=== PATIENT | female | born 1980 | race Caucasian/White ===

== ENCOUNTER 2021-01-11 16:54 | Emergency (ER) | payer OTHER, SELFPAY ==
[2021-01-11] VITALS (10 sets, daily range): BP systolic 109–135; BP diastolic 45–75; PULSE 73–83; RESP 18–20; TEMP 37–38.7; O2SAT 97–100
--- NOTE | ~2021-01-11 | CT_ITS ---
EXAMINATION: CT brain wo con DATE: 01/11/2021 17:32 INDICATION: Unresponsive TECHNIQUE: Computed tomography (CT) of the head was performed without intravenous contrast. The mA wa s adjusted according to patient size. Iterative reconstruction technique was employed. Exam dose: 75 6.67 mGy-cm total exam DLP. COMPARISON: 02/09/2019 CT brain FINDINGS: No intracranial mass lesion or hemorrhage or cerebrovascular accident. No midline shift or mass effect. Normal ventricular size. No subdural or epidural hematoma. No orbital mass lesion. The mastoid air cells are normally aerated. The paranasal sinuses are normally developed and aerated. No fracture or bone destruction of the cranial vault. IMPRESSION: No significant abnormality Reviewed, dictated and finalized at [facility] Reviewed, dictated and finalized at [facility]. IMPRESSION: No significant abnormality
--- NOTE | ~2021-01-11 | XR_ITS ---
XR chest 1V portable DATE: 01/11/2021 17:33 INDICATION: Unresponsive TECHNIQUE: Portable AP chest on 01/11/2021 at 1741 hours COMPARISON: 09/06/2018 PA and lateral chest FINDINGS: No pulmonary infiltrate or consolidation, pleural effusion or pulmonary vascular congestion or pneumothorax. Heart size appears normal considering magnification associated with AP projection. Included skeletal structures are unremarkable. IMPRESSION: No active cardiopulmonary disease Reviewed, dictated and finalized at [facility].
[2021-01-11] MEDS: SODIUM CHLORIDE 0.9% IV 1,000 ML 999 ML IV CONT (16:55)
--- NOTE | 2021-01-11 17:01 | ECG_ITS ---
Measurements Intervals [place] Rate: 83 P: 0 DC: 143 QRS: -15 QRSD: 85 T: 49 QT: 378 QTc: 445 Interpretive Statements SINUS RHYTHM EARLY PRECORDIAL R/S TRANSITION BORDERLINE ECG Electronically Signed On 01-12-2021 8:22:13 CDT by Talib Alvarenga D.O.
[2021-01-11 17:26] LABS: Basophils Absolute Auto 0.01 K/mm3 (0.00-0.10); Basophils Percent Auto 0.2 % (0.0-1.0); Eosinophils Absolute Auto 0.11 K/mm3 (0.02-0.50); Immature Granulocyte Absolute 0.03 K/mm3 (0.00-0.00); Immature Granulocyte Percent A 0.5 % (0.0-0.0); Lymphocytes Absolute Auto 0.82 K/mm3 (1.10-4.50); Lymphocytes Percent Auto 14.7 % (18.0-42.0); Mean Corpuscular HGB Conc 26.2 g/dL (32.0-36.0); Mean Corpuscular Volume 72.5 fL (78.0-102.0); Monocytes Absolute Auto 0.38 K/mm3 (0.10-0.90); Monocytes Percent Auto 6.8 % (2.0-11.0); Neutrophils Absolute Auto 4.2 K/mm3 (1.7-7.2); Neutrophils Percent Auto 75.8 % (50.0-70.0); Platelet Count Result 140 K/mm3 (150-420); Red Cell Distribution Width 20.2 % (11.6-14.4); White Blood Count 5.6 K/mm3 (4.8-10.8)
--- NOTE | 2021-01-11 17:27 | ED.AMS ---
HPI - Altered Mental Status General Chief Complaint: Altered Mental Status Stated Complaint: ambulance Time Seen by Provider: 01/11/21 17:01 Source: patient and EMS Mode of arrival: EMS Limitations: altered mental status History of Present Illness HPI narrative: 40-year-old woman brought to the emergency department by EMS after being found in a vehicle in front of a local grocery store near her house. The windows were up, the vehicle was not running. Outdoor temperature approximately 85-90 degrees and christa. Her receipt states that she checked out of the store at 3:41. 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 Patient states that she has been feeling winded with exertion and has had swelling in her ankles. She states she has had a persistent headache. She states that she recently traveled to [place] and was having black stools that she attributed to stress. She states that she has had no recent blood in her stools, vomiting bloody or otherwise, or vaginal bleeding. Patient states the thinks she went through the change. Related Data Home Medications Medication Instructions Recorded Confirmed metformin 1,000 mg BYMOUTH DAILY 01/11/21 01/11/21 oxcarbazepine 600 mg PO DAILY 01/11/21 01/11/21 risperidone 2 mg PO DAILY 01/11/21 01/11/21 Allergies Allergy/AdvReac Type Severity Reaction Status Date / Time No Known Allergies Allergy Unverified 02/08/19 18:45 Review of Systems Review of Systems: All systems reviewed & are unremarkable except as noted in HPI and below Constitutional: Constitutional: Denies chills and Denies fever(s) Eyes: Eyes: Denies change in vision and Denies photophobia ENT: Denies dysphagia, Denies nasal congestion and Denies sore throat Cardiovascular: Cardiovascular: Reports chest pain and Denies radiating jaw, neck or arm pain Respiratory: Respiratory: Reports cough and Reports dyspnea Gastrointestinal: Gastrointestinal: Denies abdominal pain, Denies diarrhea, Denies nausea and Denies vomiting Genitourinary: Genitourinary: Denies hematuria, Denies nocturia and Denies dysuria Musculoskeletal: Musculoskeletal: Denies back pain, Denies arthralgias and Denies joint swelling Integumentary/Breasts: Skin/Breast: Denies pruritus, Denies erythema and Denies rash Neurologic: Denies vertigo, Denies dizziness, Denies syncope and Reports headache(s) Hematologic/Lymphatic: Hematologic/Lymphatic: Denies easy bleeding and Denies easy bruising Allergic/Immunologic: Allergic/Immunologic: Denies lip swelling and Denies throat swelling [facility] Past Medical History Medical History (Updated 01/11/21 @ 20:12 by Joe Coelho MD) Bipolar 1 disorder Type 2 diabetes mellitus Surgical History Surgical History (Updated 01/11/21 @ 20:12 by Joe Coelho MD) Hx of appendectomy Hx of tubal ligation Social History Social History (Updated 01/11/21 @ 20:13 by Joe Coelho MD) Smoking status: Current every day smoker Alcohol intake: never Substance use: former Living arrangements: with family Exam Const: Limitations: altered mental status ( somnolent) HENMT: Head: normal to inspection Ears: external ears normal, TM's normal bilaterally and EAC's normal General nose exam: Normal nares present Face and sinus: normal facial exam Mouth: Yes moist mucous membranes Throat: posterior oropharynx normal Eyes: Conjunctivae: conjunctivae normal Pupils: Equal, round and reactive pupils present EOM: EOMs intact bilaterally Resp: Effort & Inspection: normal respiratory effort and not labored Auscultation: clear to auscultation bilaterally, no rales, no rhonchi and no wheezes Cardio: Rate: regular rate Rhythm: regular rhythm Heart sounds: no murmurs GI: GI Palp: Yes Soft to palpation, No Tenderness to palpation present (GI) and No Palpable mass present Urinary Catheter: Urinary Catheter: urine clear Skin: General skin exam: no jaundice and pallor Rashes: no rashes
[2021-01-11 17:39] LABS: INR 1.2; Partial Thromboplastin Time 20.8 SEC (23.90-30.70); Prothrombin Time 12.7 Seconds (9.50-12.10)
[2021-01-11 17:40] LABS: Lactic Acid Reflex 1.5 mmol/L (0.4-2.0)
[2021-01-11 17:47] LABS: Hematocrit 14.5 % (35.0-49.0); Hemoglobin 3.8 g/dL (12.0-15.0)
[2021-01-11 17:48] LABS: Hemoglobin 3.7 g/dL (12.0-15.0)
[2021-01-11 17:49] LABS: Alanine Aminotransferase 14 U/L (14-59); Albumin Level 3.2 g/dL (3.4-5.0); Alkaline Phosphatase 90 U/L (46-116); Anion Gap 10 mmol/L (8-16); Aspartate Amino Transferase 12 U/L (15-37); Bilirubin,Total 0.4 mg/dL (0.00-1.00); Blood Urea Nitrogen 15 mg/dL (7-18); CRP < 0.5 mg/dL (0.0-0.9); Calcium 8.5 mg/dL (8.5-10.1); Carbon Dioxide 26 mmol/L (21-32); Chloride 105 mmol/L (98-108); Estimated Glomerular Filt Rate > 60; Glucose 103 mg/dL (70-99); Osmolality Calculated 292 mOsm/kg (285-295); Potassium 4.3 mmol/L (3.5-5.1); Sodium 141 mmol/L (136-145); Total Protein 6.1 g/dL (6.4-8.2); Troponin I 9.2 ng/L (0.00-60.4)
[2021-01-11 17:49] LABS: Hematocrit 13.7 % (35.0-49.0)
[2021-01-11 17:53] LABS: Creatine Kinase 33 U/L (26-192)
[2021-01-11 17:55] LABS: Urine Pregnancy Test Negative
[2021-01-11 17:56] LABS: Add Urine Microscopic? NO; Appearance Urine Clear (Clear); Bilirubin Urine Negative (Negative); Blood Urine Negative (Negative); Color Urine Yellow (Yellow); Glucose Urine UA Negative (Negative); Ketones Urine Negative (Negative); Leukocyte Esterase Ur Negative LEU/UL (Negative); Nitrate Urine Negative (Negative); Pregnancy On Board Control Positive; Protein Urine Negative (Negative); Specific Grav Ur 1.015 (1.010-1.020)
[2021-01-11 18:01] LABS: Amphetamine Screen Urine Negative (Negative); Barbiturate Screen Urine Negative (Negative); Benzodiazepines Screen Urine Negative (Negative); Cannabinoid Screen Urine Positive (Negative); Cocaine Screen Urine Negative (Negative); Methadone Screen Urine Negative (Negative); Opiate Screen Urine Negative (Negative); Phencyclidine Screen Urine Negative (Negative)
--- NOTE | 2021-01-11 18:18 | PC.NURSE ---
attempted to notify father, Margarito of pt whereabouts. no answer left message. [phone]. pt resting per cot. BLOOD TRANSFUSION CONSENT signed and witness by patient and this newswriter.
[2021-01-11 18:21] LABS: Lactate Dehydrogenase 220 U/L (81-234)
[2021-01-11 18:28] LABS: Salicylate 3.9 mg/dL (2.8-20.0)
[2021-01-11 18:30] LABS: Acetaminophen < 2 ug/mL (10-30); Ethanol < 3 mg/dL (0-6)
[2021-01-11] MEDS: SODIUM CHLORIDE 0.9% IV 250 ML 30 ML IV CONT (19:20)
--- NOTE | 2021-01-11 19:22 | PC.NURSE ---
report to candie warner
--- NOTE | 2021-01-11 19:25 | PC.NURSE ---
Report received, pt. noted lethargic and drowsy upon entering room. Blood ready per lab. Pts. VSS and 1U PRBC ready for infusion.
[2021-01-11 19:30] LABS: Occult Blood Negative (Negative)
--- NOTE | 2021-01-11 20:00 | PC.NURSE ---
Pt. requests transfer to [place] [facility] if possible, call placed to [place] [facility] by Dr Coelho, awaiting call back.
[2021-01-11] MEDS: ACETAMINOPHEN 500 MG TABLET 1000 MG PO (20:18)
[2021-01-11 20:24] LABS: Immature Reticulocyte Fraction 52.1 % (2.0-16.52); Reticulocyte Hemoglobin Conten 13.6 pg (28.0-35.0); Reticulocyte Percent 1.39 % (0.50-1.50); Reticulocytes Absolute 0.03 M/mm3 (0.02-0.1)
--- NOTE | 2021-01-11 20:30 | PC.NURSE ---
Call estrella from [facility], bed at [facility] and room # given for report. Pt informed of transfer to [facility].
--- NOTE | 2021-01-11 21:42 | PC.NURSE ---
Call paged for [facility] for transfer.
[2021-01-11 21:43] LABS: SARS-CoV-2 RNA PCR Negative (Negative)
[2021-01-11 22:09] LABS: Influenza Control Valid (Valid)
--- NOTE | 2021-01-11 22:09 | PC.NURSE ---
Report given to [facility] for transfer. Pt. transferred to cot s difficulty, VSS.
== END 2021-01-11 22:10 | disposition short-term general hospital (02) ==
PROVIDERS: Emergency Provider Emergency Medicine
DX: R41.82 Altered mental status, unspecified (principal); D64.9 Anemia, unspecified
CPT/HCPCS: 36415; 36430; 70450; 71045; 80053; 80307; 81003; 81025; 82272; 82550; 83605; 83615; 84100; 84484; 85014; 85018; 85025; 85046; 85610; 85730; 86140; 86850; 86880; 86900; 86901; 86920; 87040; 87086; 87804; 93005; 96360; 96361; 99285; C9803; J7030; J7050; P9016; U0003; U0005

== ENCOUNTER 2021-01-20 09:13 | Emergency (ER) | payer OTHER, SELFPAY ==
--- NOTE | ~2021-01-20 | CT_ITS ---
EXAMINATION: CT brain wo con DATE: 01/20/2021 09:59 INDICATION: Head injury with dizziness and swollen left eye post fall 3 days prior. TECHNIQUE: Computed tomography (CT) of the head was performed without intravenous contrast. Sagittal and coronal reconstructions were performed. Automated exposure control and iterative reconstruction t echnique were employed. The dose-length product was 605.33 mGy-cm. COMPARISON: head CT dated 01/11/2021 FINDINGS: Prominent preseptal soft tissue swelling at the left orbit. Globes appear intact. No post septal infl ammatory stranding. No fracture. No acute intracranial hemorrhage, acute infarction or abnormal extra axial fluid collection. Ventricles are normal and symmetric. No mass/mass effect. Intracranial calci fied cerebral atherosclerosis is noted. The orbits, paranasal sinuses and mastoid air cells are davon l. IMPRESSION: 1. Normal brain. No acute intracranial process. 2. Prominent preseptal soft tissue swelling about the left orbit. Orbit is otherwise normal with no f racture or post septal inflammatory stranding. Reviewed, dictated and finalized at location [facility]. IMPRESSION: 1. Normal brain. No acute intracranial process. 2. Prominent preseptal soft tissue swelling about the left orbit. Orbit is othe rwise normal with no fracture or post septal inflammatory stranding.
--- NOTE | ~2021-01-20 | CT_ITS ---
EXAMINATION: CT cervical spine wo con DATE: 01/20/2021 09:59 INDICATION: Neck pain post fall TECHNIQUE: Computed tomography (CT) of the cervical spine was performed without intravenous contrast. Automated exposure control and iterative reconstruction technique were employed. The dose-length pro duct was 483.34 mGy-cm. COMPARISON: None FINDINGS: Straightening of the normal cervical lordosis. Vertebral body heights are normal. No fracture. Disc h eights are relatively preserved. Multilevel mild bilateral facet and uncovertebral osteoarthritis thr oughout the cervical spine. Minimal neural foraminal stenosis on the right at C4-C5. There are severa l disc bulges throughout the cervical spine resulting in multilevel mild central canal stenosis. Smal l coarse calcification within the right thyroid lobe. Likely reactive mildly enlarged bilateral level 2 jugular chain lymph nodes each measuring 11 mm in maximal short axis diameter. Cervical soft tissu es are otherwise unremarkable. The visualized airway and apices of lungs are clear. IMPRESSION: 1. Mild cervical spondylosis. No acute osseous abnormality. Reviewed, dictated and finalized at location [facility].
[2021-01-20 09:20] VITALS: BP 117/77; PULSE 73; RESP 20; TEMP 37.2; O2SAT 97
--- NOTE | 2021-01-20 09:36 | ED.FALL ---
HPI - Fall General Chief Complaint: Dizziness Stated Complaint: swollen eye Time Seen by Provider: 01/20/21 09:25 Source: patient Mode of arrival: ambulatory Limitations: no limitations History of Present Illness HPI Narrative: Patient comes in after fall 2 days ago. She says she has been dizzy, but can't further elaborate on what dizzy means. From questioning her, she denies presyncope, and she denies vertigo. This young woman has a known history of drug abuse, and it is unclear as to if this dizzy feeling represents some sensation related to drug abuse. She fell striking her left head around and lateral to the left eye. She has bruising and swelling on top of and below the left eye, and to the temporal area lateral to the eye on the left head. MD complaint: fall Onset (ago): day(s) (2 days ago) Fall from: standing Fall witnessed: no Place fall occurred: home Loss of consciousness: none Length of LOC: second(s) Prolonged down time: no Symptoms prior to fall: lightheadedness and dizziness Context: alcohol use (denies alcohol use) Location of injury: head Severity: moderate Quality: dull Associated symptoms (after fall): headache Related Data Home Medications Medication Instructions Recorded Confirmed metformin 1,000 mg BYMOUTH DAILY 01/11/21 01/20/21 oxcarbazepine 600 mg PO DAILY 01/11/21 01/20/21 risperidone 2 mg PO DAILY 01/11/21 01/20/21 Allergies Allergy/AdvReac Type Severity Reaction Status Date / Time No Known Allergies Allergy Unverified 02/08/19 18:45 Review of Systems Constitutional: Constitutional: Reports no additional constitutional complaints Eyes: Eyes: Reports no additional eye complaints ENT: Reports system reviewed and no additional complaints, except as documented Cardiovascular: Cardiovascular: Reports no additional cardiovascular complaints Respiratory: Respiratory: Reports no additional respiratory complaints Gastrointestinal: Gastrointestinal: Reports no additional gastrointestinal complaints Genitourinary: Genitourinary: Reports no additional female genitourinary complaints Musculoskeletal: Musculoskeletal: Reports no additional musculoskeletal complaints Integumentary/Breasts: Skin/Breast: Reports system reviewed and no additional complaints, except as docu Neurologic: Reports system reviewed and no additional complaints, except as documented Psychiatric: Psychiatric: Reports no additional psychiatric complaints Endocrine: Endocrine: Reports no additional endocrine complaints Hematologic/Lymphatic: Hematologic/Lymphatic: Reports no additional hematologic/lymphatic complaints Allergic/Immunologic: Allergic/Immunologic: Reports no additional allergic/immunologic complaints [facility] Past Medical History Medical History Anxiety Bipolar 1 disorder delivery delivered Type 2 diabetes mellitus Surgical History Surgical History (Updated 01/20/21 @ 10:27 by Zafar Cook MD) Hx of appendectomy Hx of appendectomy Hx of tubal ligation Previous section Family History Family History Father CHF (congestive heart failure) Diabetes mellitus Mother Depression CHF (congestive heart failure) Social History Social History Smoking status: Current every day smoker Alcohol intake: never Substance use: former Exam Const: General: no acute distress and alert Orientation/consciousness: patient oriented x3 HENMT: Head: normal to inspection Ears: external ears normal and TM's normal bilaterally General nose exam: Normal external nose present Mouth: Yes Normal oral and palatal mucosa present Throat: posterior oropharynx normal Eyes: Conjunctivae: conjunctivae normal Other: Area above left eye is swollen and a bit reddened. Neck: Neck: normal visual inspection Chest: Chest palpation & inspection
[2021-01-20] MEDS: KETOROLAC (*BKC) 60 MG/2 ML VIAL IM (09:40)
[2021-01-20 09:48] LABS: Hematocrit 30.6 % (35.0-49.0); Hemoglobin 8.8 g/dL (12.0-15.0); Immature Platelet Fraction Pct 1.2 % (1.0-7.0); Mean Corpuscular HGB Conc 28.8 g/dL (32.0-36.0); Mean Corpuscular Hemoglobin 24.6 pg (27.0-31.0); Mean Corpuscular Volume 85.5 fL (78.0-102.0); Mean Platelet Volume 9.1 fl (9.2-11.8); Platelet Count Result 90 K/mm3 (150-420); Red Blood Count 3.58 M/mm3 (4.20-5.40); Red Cell Distribution Width 28.4 % (11.6-14.4); White Blood Count 2.5 K/mm3 (4.8-10.8)
[2021-01-20 10:02] LABS: Alanine Aminotransferase 14 U/L (14-59); Albumin Level 3.2 g/dL (3.4-5.0); Alkaline Phosphatase 104 U/L (46-116); Anion Gap 9 mmol/L (8-16); Aspartate Amino Transferase 19 U/L (15-37); Bilirubin,Total 0.8 mg/dL (0.00-1.00); Blood Urea Nitrogen 9 mg/dL (7-18); Calcium 8.5 mg/dL (8.5-10.1); Carbon Dioxide 29 mmol/L (21-32); Chloride 109 mmol/L (98-108); Estimated CRCL calculation 109 ml/min; Estimated Glomerular Filt Rate > 60; Glucose 106 mg/dL (70-99); Osmolality Calculated 302 mOsm/kg (285-295); Potassium 3.8 mmol/L (3.5-5.1); Sodium 147 mmol/L (136-145)
[2021-01-20 10:08] LABS: INR 1.2; Partial Thromboplastin Time 29.1 SEC (23.90-30.70)
--- NOTE | 2021-01-20 10:09 | PC.NURSE ---
1000pt return from ct . states has been very sleepy since transfusion on last er visit.
[2021-01-20 10:10] LABS: Band Neutrophils Percent 0 % (0-6); Basophils Percent Manual 0 % (0-1); Eosinophils Absolute Manual 0.02 K/mm3 (0.02-0.5); Eosinophils Percent Manual 1 % (1-6); Lymphocytes Absolute Manual 0.55 K/mm3 (1.1-4.5); Lymphocytes Percent Manual 22 % (18-44); Monocytes Absolute Manual 0.05 K/mm3 (0.1-0.90); Monocytes Percent Manual 2 % (3-9); Neutrophils Absolute Manual 1.87 K/mm3 (1.7-7.2); Neutrophils Percent Manual 75 % (46-73); Total Cells Counted 100
[2021-01-20 10:11] LABS: Platelet Estimate Adequate (Adequate)
[2021-01-20 10:43] VITALS: BP 129/85; PULSE 68; RESP 20; TEMP 37.2; O2SAT 98
[2021-01-20] MEDS: SODIUM CHLORIDE 0.9% IV 1,000 ML 999 ML IV CONT (11:10)
--- NOTE | 2021-01-20 12:04 | PC.NURSE ---
pt remains sleeping, speech slow when aroused.
--- NOTE | 2021-01-20 12:30 | PC.NURSE ---
pt states feeling better after iv fluids completed. erp in room with pt
[2021-01-20 12:37] VITALS: BP 127/66; PULSE 63; RESP 20; TEMP 36.6; O2SAT 95
== END 2021-01-20 12:39 | disposition home or self-care (01) ==
PROVIDERS: Emergency Provider Emergency Medicine
DX: R42 Dizziness and giddiness (principal); W19.XXXA Unspecified fall, initial encounter
CPT/HCPCS: 36415; 70450; 72125; 80053; 85025; 85055; 85610; 85730; 96360; 96372; 99283; 99284; J1885; J7030